=== PATIENT | female | born 1995 | race Caucasian/White ===

== ENCOUNTER 2017-02-07 01:40 | Observation (INO) | payer OTHER ==
[2017-02-07] MEDS ORDERED: IPRATROPIUM/ALBUTEROL 3 ML DEYVIAL ONE (01:45)
--- NOTE | 2017-02-07 01:51 | EDPHY ---
H & P HPI/ROS: HPI CHIEF COMPLAINT: Shortness of breath, asthma HISTORY OF PRESENT ILLNESS: Patient is a 21-year-old female she does have significant past medical history for asthma she has never been intubated, she presents emergency room stating that she is having an asthma attack. Upon arrival she is noted to be tachycardic, very anxious appearing, and tachypneic. She has a bronchitic sounding cough. However good air movement her lungs are clear. Room air saturation is 93%. No other medical history. No history of PE. Denies any chest pain. Denies fever. Denies productive cough does endorse nausea with vomiting. She reports that she started coughing yesterday. Nonproductive. Past Medical History: Asthma Past Surgical History: No recent surgery Social History: Denies daily use of drugs alcohol tobacco. [employer] student. Family History: Noncontributory. ROS REVIEW OF SYSTEMS: A comprehensive 10 point review of systems is otherwise negative aside from elements mentioned in the history of present illness. Exam Constitutional appears anxious, triage nursing summary reviewed, vital signs reviewed, awake/alert. Vital signs noted at triage tachycardia and tachypnea. Eyes normal conjunctivae and sclera, EOMI, PERRLA. HENT normal inspection, atraumatic, moist mucus membranes, no epistaxis, neck supple/ no meningismus, no raccoon eyes. Respiratory tachypnea clear lung sounds good air movement bilaterally. Bronchitic sounding cough. Cardiovascular tachycardia,regular rhythm, no murmur, no edema, distal pulses normal. Gastrointestinal soft, non-tender, no rebound, no guarding, normal bowel sounds, no distension, no pulsatile mass. Genitourinary no CVA tenderness. Musculoskeletal no midline vertebral tenderness, full range of motion, no calf swelling, no tenderness of extremities, no meningismus, good pulses, neurovascularly intact. Skin pink, warm, & dry, no rash, skin atraumatic. Neurologic awake, alert and oriented x 3, AAOx3, moves all 4 extremities equally, motor intact, sensory intact, CN II-XII intact, normal cerebellar, normal vision, normal speech. Psychiatric anxious Heme/Lymph/Immune no lymphadenopathy. Differential Diagnosis: Includes but is not limited to in a particular order bronchitis, upper respiratory tract infection, pneumothorax, acute asthma exacerbation, acute anxiety attack, panic attack Medical Decision Making: Plan for this patient IV establishment with IV fluid bolus 2 L normal saline, IV Solu-Medrol, DuoNeb breathing treatment, IV magnesium, IV Ativan. Chest x-ray. EKG. Basic blood work. Check D-dimer. Re -evaluate. Full manager cardiac cath. Re-evaluation: EKG interpretation by me on record in [employer] system. Impression time of EKG 2:02 a.m., this is sinus rhythm rate of 163. The EKG is reading AFib however I disagree it is regular narrow complex sinus tachycardia. I do not appreciate acute ischemic change. CT angiogram of the chest with IV contrast shows no evidence of pulmonary embolism. Called to me by Dr. Dukes. 0502: This patient is influenza a positive. She is persistently tachycardic here in emergency room when she arrived she was in the 160s. She is currently in the 130s. Due to ongoing tachycardia underlying lung disease of asthma and influenza a positive she will be admitted to the hospital service for observation and IV fluids. Here in the emergency room she has received magnesium, IV Solu-Medrol, 3 L of fluid, pain control and Ativan. She has symptomatic Carlos improved but still persistently tachycardic. She has been in the emergency room for over 3 hours. Will plan for observation admission. Source: Patient - Medical/Surgical History Hx Asthma: Yes Other PMH: PMH: asthma, H pylori. PSH: none - Social History Smoking Status: Never smoked Constitutional: Initial Vital Signs Temperature (C) 37.2 C 02/07/17 01:47 Heart Rate 165 H 02/07/17 01:47 Respiratory Rate 35 H 02/07/17 01:47 Blood Pressure 116/74 02/07/17 01:47 O2 Sat (%) 93 02/07/17 01:47 O2 Delivery Mode Room Air Allergies/Adverse Reactions: No Known Allergies Allergy (Verified 02/07/17 01:46) Home Medications: Medication Instructions Recorded Montelukast Sodium [Singulair 10 10 mg PO DAILY 07/24/14 mg (*)] Acetaminophen [Tylenol 325mg (*)] 650 mg PO Q4HRS PRN tab 02/07/17 Benzonatate [Tessalon Pearles] 200 mg PO TID PRN #14 cap 02/07/17 Norgestimate-Ethinyl Estradiol 1 each PO DAILY 02/07/17 [Tri-Sprintec Tablet] Oseltamivir Phosphate [Tamiflu 75 75 mg PO BIDMEAL #10 cap 02/07/17 mg (*)] Ranitidine HCl [Zantac 75] 75 mg PO DAILY PRN 02/07/17 diphenhydrAMINE [Benadryl 25 MG 25 - 50 mg PO Q6HRS PRN cap 02/07/17 (*)] Medical Decision Making - Diagnostics Imaging Results: Imaging Impressions Chest X-Ray 02/07/17 01:53 Impression: 1. No definite pneumonia. 2. No pneumothorax. - Data Points Laboratory Results: Laboratory Results 02/07/17 01:55 02/07/17 01:55 Medications Given: Discontinued Medications Acetaminophen (Tylenol) 650 mg PO Q4HRS PRN PRN Reason: Pain, Mild/Fever, Can Take PO Stop: 08/06/17 05:31 Last Admin: 02/07/17 08:10 Dose: 650 mg Albuterol/Ipratropium (Duoneb) 3 ml IH EDNOW ONE Stop: 02/07/17 01:53 Last Admin: 02/07/17 02:08 Dose: 3 ml Benzonatate (Tessalon Pearles) 200 mg PO TID PRN PRN Reason: Cough, Mild Stop: 08/06/17 12:00 Last Admin: 02/07/17 12:13 Dose: 200 mg Hydromorphone HCl (Dilaudid) 0.5 mg IVP EDNOW ONE Stop: 02/07/17 02:31 Last Admin: 02/07/17 03:00 Dose: 0.5 mg Sodium Chloride (Ns) 2,000 mls @ 0 mls/hr IV ONCE ONE; Wide Open PRN Reason: Protocol Stop: 02/07/17 01:53 Last Admin: 02/07/17 02:07 Dose: 2,000 mls Magnesium Sulfate (Magnesium Sulf 2 Gm (Premix)) 50 mls @ 50 mls/hr IV EDNOW ONE Stop: 02/07/17 02:52 Last Admin: 02/07/17 01:56 Dose: 50 mls Sodium Chloride (Ns) 1,000 mls @ 0 mls/hr IV ONCE ONE PRN Reason: Wide Open Stop: 02/07/17 03:38 Last Admin: 02/07/17 03:40 Dose: 1,000 mls Sodium Chloride (Ns) 1,000 mls @ 75 mls/hr IV CONT MARIELY Stop: 08/06/17 05:44 Last Admin: 02/07/17 08:11 Dose: 1,000 mls Lorazepam (Ativan Injection) 1 mg IVP EDNOW ONE Stop: 02/07/17 01:54 Last Admin: 02/07/17 01:56 Dose: 1 mg Methylprednisolone Sodium Succinate (Solu-Medrol) 125 mg IVP EDNOW ONE Stop: 02/07/17 01:54 Last Admin: 02/07/17 01:56 Dose: 125 mg Miscellaneous Medication (Norgestimate-Ethinyl Estradiol [Tri-Sprintec Tablet]) 1 each PO DAILY MARIELY Stop: 08/06/17 08:59 Last Admin: 02/07/17 12:13 Dose: Not Given Montelukast Sodium (Singulair) 10 mg PO DAILY MARIELY Stop: 08/06/17 08:59 Last Admin: 02/07/17 12:13 Dose: 10 mg Ondansetron HCl (Zofran) 4 mg IVP EDNOW ONE Stop: 02/07/17 01:54 Last Admin: 02/07/17 01:56 Dose: 4 mg Oseltamivir Phosphate (Tamiflu) 75 mg PO EDNOW ONE Stop: 02/07/17 05:06 Last Admin: 02/07/17 05:34 Dose: 75 mg Departure - Departure Disposition: [facility] Acute Clinical Impression: Tachycardia, Influenza A, Cough Condition: Fair
[2017-02-07] MEDS ORDERED: IPRATROPIUM/ALBUTEROL 3 ML DEYVIAL IH ONE (01:52)
[2017-02-07] MEDS ORDERED: NS 2,000 ML IV ONE (01:52)
[2017-02-07] MEDS ORDERED: methylPREDNISolone SOD SUCC 125 MG/2 ML VIAL IVP ONE (01:53)
[2017-02-07] MEDS ORDERED: MAGNESIUM SULF 2 GM/WATER 50 ML IV ONE (01:53)
[2017-02-07] MEDS ORDERED: LORazepam 2 MG/ML INJ IVP ONE (01:53)
[2017-02-07] MEDS ORDERED: ONDANSETRON 4 MG/2 ML VIAL IVP ONE (01:53)
[2017-02-07 02:02] LABS: PLATELET COUNT 272 10^3/uL (150-400)
--- NOTE | 2017-02-07 02:04 | CPEKG ---
Heart Rate: 163 RR Interval: 368 QRSD Interval: 78 QT Interval: 324 QTC Interval: 534 QRS [place]: 85 T Wave [place]: -20 EKG Severity - ABNORMAL ECG - EKG Impression: ATRIAL FIBRILLATION EKG Impression: VENTRICULAR PREMATURE COMPLEX EKG Impression: NONSPECIFIC REPOL ABNORMALITY, DIFFUSE LEADS EKG Impression: PROLONGED QT INTERVAL Electronically Signed By: Cole Guerrero 07-Feb-2017 06:35:17
--- NOTE | 2017-02-07 02:04 | CPEKG ---
Heart Rate: 163 RR Interval: 368 QRSD Interval: 78 QT Interval: 324 QTC Interval: 534 QRS [place]: 85 T Wave [place]: -20 EKG Severity - ABNORMAL ECG - EKG Impression: ATRIAL FIBRILLATION EKG Impression: VENTRICULAR PREMATURE COMPLEX EKG Impression: NONSPECIFIC REPOL ABNORMALITY, DIFFUSE LEADS EKG Impression: PROLONGED QT INTERVAL Electronically Signed By: Cole Guerrero 07-Feb-2017 06:35:17
[2017-02-07] MEDS ORDERED: HYDROmorphONE/DILAUDID 1 MG/ML INJ IVP ONE (02:30)
[2017-02-07] MEDS ORDERED: IOPAMIDOL (ISOVUE 370) 100 ML BTL IV ONE (02:33)
[2017-02-07] MEDS ORDERED: NS 1,000 ML IV ONE (03:37)
[2017-02-07] MEDS ORDERED: OSELTAMIVIR PHOSPHATE 75 MG CAP PO ONE (05:05)
[2017-02-07] MEDS ORDERED: ALBUTEROL 3 ML DEYVIAL IH PRN (05:32)
[2017-02-07] MEDS ORDERED: ACETAMINOPHEN 325 MG TAB PO PRN (05:32)
[2017-02-07] MEDS ORDERED: ONDANSETRON DISINTEGRATING 4 MG TAB PO PRN (05:32)
[2017-02-07] MEDS ORDERED: diphenhydrAMINE 25 MG CAP PO PRN (05:32)
[2017-02-07] MEDS ORDERED: HYDROmorphONE/DILAUDID 1 MG/ML INJ IVP PRN (05:32)
[2017-02-07] MEDS ORDERED: LORazepam 0.5 MG TAB PO PRN (05:32)
[2017-02-07] MEDS ORDERED: NS 1,000 ML IV SCH (05:45)
--- NOTE | 2017-02-07 06:55 | PDGENHP ---
History and Physical - Chief Complaint shortness of breath - History of Present Illness Source - patient provides history. she is fatigued but attempts to be cooperative. case discussed with ED provider and EMR reviewed. HPI - 21 yo F with pmhx significant for asthma, seasonal allergies who presents to the ED today with complaint of acute and severe SOB. patient reports history of 3-4 days of viral symptoms including cough, nausea/vomiting without diarrhea. Patient denies any known sick contacts but "probably" as she lives in a sor[place] house and is [employer] student. Patient reports having had her annual influenza vaccination. Patient notes some mild worsening SOB until this evening when it suddenly became very difficult to breath within a short amount of time. Patient reports using home albuterol without improvement in her symptoms. She also notes right and central pleuritic chest pain/tightness worse with cough and WOB. In the ED, Patient was noted to be in acute respiratory distress tachypneic to 40s and tachycardic to 170s. she was given steroids, nebs, magnesium with improvement in her symptoms. History Information - Allergies/Home Medication List Allergies/Adverse Reactions: No Known Allergies Allergy (Verified 02/07/17 01:46) Home Medications: Monolucast 07/24/14 [Last Taken Unknown] I have personally reviewed and updated: family history, medical history, social history, surgical history - Past Medical History asthma - Surgical History Reports: no pertinent surgical hx - Family History Positive for: asthma (brother, father). Negative for: diabetes type II - Social History Smoking Status: Never smoked Alcohol Use: Occasionally Drug Use: Marijuana (occasional) Review of Systems Review of Systems: ROS: 10pt was reviewed & negative except for what was stated in HPI & below Constitutional: Reports: malaise, recent illness. Denies: chills, fever, weakness EENMT: Reports: sore throat. Denies: ear pain, nose congestion Cardiac: Reports: chest pain (pleuritic. see hpi.). Denies: edema, palpitations Respiratory: Reports: cough, shortness of breath. Denies: wheezing Gastrointestinal: Reports: vomitting, nausea. Denies: black stools, blood streaked stools, diarrhea Genitourinary: Denies: dysuria, hematuria Muscolosketal: Reports: muscle pain (+ myalgias. improved since arrival. ). Denies: joint pain Skin: Reports: no symptoms. Denies: rash Neurological: Reports: no symptoms. Denies: headache, numbness, tingling, weakness Hematologic/Lymphatic: Denies: no symptoms Physical Exam Physical Exam: Selected Entries 02/07/17 01:47 Heart Rate 165 H Respiratory 35 H Rate O2 Sat (%) 93 Temperature (C) 37.2 C Blood Pressure 116/74 Mean Arterial 88 Pressure (MAP) O2 Delivery Room Air Mode Temp Pulse Resp BP Pulse Ox 37.6 C 115 H 20 96/52 L 95 02/07/17 06:26 02/07/17 06:26 02/07/17 06:26 02/07/17 06:26 02/07/17 06:26 Constitutional: no apparent distress, appears nourished, not in pain, other ( fatigued.) Eyes: PERRL, anicteric sclera, EOMI Ears, Nose, Mouth, Throat: moist mucous membranes, No poor dentition, No dry mucous membranes Cardiovascular: no murmur, rub, or gallop, tachycardia (120s-130s), No systolic murmur, No irregularly irregular, No edema Peripheral Pulses: 2+: dorsalis-pedis (R), dorsalis-pedis (L) Respiratory: no respiratory distress, reduced air movement (diffusely. ), other (coarse breath sounds), No expiratory wheeze, No inspiratory crackles Gastrointestinal: normoactive bowel sounds, soft, non-tender abdomen, no palpable masses, No distension Genitourinary: no bladder fullness, no bladder tenderness, No ibrahim in urethra Skin: warm, normal color, no rashes or abrasions, other (pallor) Musculoskeletal: full muscle strength Neurologic: AAOx3, other (grossly nonfocal. ) Psychiatric: not anxious, flat affect, other (fatigued. ), No anxious, No depressed Lab Data & Imaging Review 02/07/17 01:55 02/07/17 01:55 WBC 11.98 10^3/uL (3.80-9.50) H 02/07/17 01:55 RBC 4.94 10^6/uL (4.18-5.33) 02/07/17 01:55 Hgb 13.3 g/dL (12.6-16.3) 02/07/17 01:55 Hct 39.5 % (38.0-47.0) 02/07/17 01:55 MCV 80.0 fL (81.5-99.8) L 02/07/17 01:55 MCH 26.9 pg (27.9-34.1) L 02/07/17 01:55 MCHC 33.7 g/dL (32.4-36.7) 02/07/17 01:55 RDW 14.8 % (11.5-15.2) 02/07/17 01:55 Plt Count 272 10^3/uL (150-400) 02/07/17 01:55 MPV 9.3 fL (8.7-11.7) 02/07/17 01:55 Neut % (Auto) 82.1 % (39.3-74.2) H 02/07/17 01:55 Lymph % (Auto) 10.9 % (15.0-45.0) L 02/07/17 01:55 [place] % (Auto) 5.8 % (4.5-13.0) 02/07/17 01:55 Eos % (Auto) 0.6 % (0.6-7.6) 02/07/17 01:55 Baso % (Auto) 0.3 % (0.3-1.7) 02/07/17 01:55 Nucleat RBC Rel Count 0.0 % (0.0-0.2) 02/07/17 01:55 Absolute Neuts (auto) 9.84 10^3/uL (1.70-6.50) H 02/07/17 01:55 Absolute Lymphs (auto) 1.30 10^3/uL (1.00-3.00) 02/07/17 01:55 Absolute Monos (auto) 0.70 10^3/uL (0.30-0.80) 02/07/17 01:55 Absolute Eos (auto) 0.07 10^3/uL (0.03-0.40) 02/07/17 01:55 Absolute Basos (auto) 0.04 10^3/uL (0.02-0.10) 02/07/17 01:55 Absolute Nucleated RBC 0.00 10^3/uL (0-0.01) 02/07/17 01:55 Immature Gran % 0.3 % (0.0-1.1) 02/07/17 01:55 Immature Gran # 0.03 10^3/uL (0.00-0.10) 02/07/17 01:55 D-Dimer 0.66 ug/mLFEU (0.00-0.50) H 02/07/17 01:55 Sodium 140 mEq/L (134-144) 02/07/17 01:55 Potassium 4.1 mEq/L (3.5-5.2) 02/07/17 01:55 Chloride 105 mEq/L (97-110) 02/07/17 01:55 Carbon Dioxide 22 mEq/l (22-31) 02/07/17 01:55 Anion Gap 13 mEq/L (8-16) 02/07/17 01:55 BUN 10 mg/dL (7-23) 02/07/17 01:55 Creatinine 0.8 mg/dL (0.6-1.0) 02/07/17 01:55 Estimated GFR > 60 02/07/17 01:55 Glucose 121 mg/dL (70-100) H 02/07/17 01:55 Calcium 9.3 mg/dL (8.5-10.4) 02/07/17 01:55 Troponin I < 0.012 ng/mL (0.000-0.034) 02/07/17 01:55 NT-Pro-B Natriuret Pep 110 pg/mL (0-125) 02/07/17 01:55 Urine Color RED 02/07/17 04:15 Urine Appearance CLEAR 02/07/17 04:15 Urine pH 5.0 (5.0-7.5) 02/07/17 04:15 Ur Specific [place] 1.026 (1.002-1.030) 02/07/17 04:15 Urine Protein NEGATIVE (NEGATIVE) 02/07/17 04:15 Urine Ketones NEGATIVE (NEGATIVE) 02/07/17 04:15 Urine Blood 1+ (NEGATIVE) H 02/07/17 04:15 Urine Nitrate NEGATIVE (NEGATIVE) 02/07/17 04:15 Urine Bilirubin NEGATIVE (NEGATIVE) 02/07/17 04:15 Urine Urobilinogen NEGATIVE EU (0.2-1.0) 02/07/17 04:15 Ur Leukocyte Esterase NEGATIVE (NEGATIVE) 02/07/17 04:15 Urine RBC 3-5 /hpf (0-3) H 02/07/17 04:15 Urine WBC 1-3 /hpf (0-3) 02/07/17 04:15 Ur Epithelial Cells NONE SEEN /lpf (NONE-1+) 02/07/17 04:15 Urine Glucose NEGATIVE (NEGATIVE) 02/07/17 04:15 Nasal Influenza A PCR FLU A DETECTED (NEGATIVE) H 02/07/17 03:40 Nasal Influenza B PCR NEGATIVE FOR FLU B (NEGATIVE) 02/07/17 03:40 Visualized and Interpreted Chest x-ray results: Yes Chest X-Ray results: no infiltrate, normal EKG Interpretation: Positive for: other (sinus tachycardia 160s. no acute changes. ) Assessment & Plan Assessment: 21 yo F with asthma presents with acute respiratory distress. #acute respiratory failure - s/p nebs,steroids, mag, ativan in ED with improvement in respiratory status. patient without documented hypoxia #influenza A - tamiflu #asthma exacerbation - nebs, steroids, mag as above given. #tachycardia - continue IVF and montior on remote telemetry. #hypotension - BPs low normal. Patient reports not usual as her baseline BP "normal." patient currently asymptomatic. ativan could also be contributing. # continue IVF. #hyperglycemia - nonfasting lab. continue to monitor. advance diet. FEN - IVF, encourage PO hydration if tolerated. anti-emetics prn for nausea. advance diet as tolerated. PPX - SCDs. early ambulation COR - FULL Dispo - Patient admitted to observation on medical floor for remote telemetry monitoring in setting of tachycardia.
[2017-02-07 07:58] VITALS: RESP 16
[2017-02-07] MEDS ORDERED: MONTELUKAST SODIUM 10 MG TAB PO SCH (09:00)
[2017-02-07] MEDS ORDERED: NORGESTIMATE ETHINYL ESTRADIOL PO SCH ×2 (09:00→12:15)
[2017-02-07 11:20] VITALS: BP 90/52; PULSE 86; TEMP 98.3; O2SAT 96
[2017-02-07] MEDS ORDERED: BENZONATATE 100 MG CAP PO PRN (12:01)
[2017-02-07] MEDS ORDERED: NON-FORMULARY NEW DRUG (Ranitidine Hcl [Zantac 75] 75 MG) PO PRN (12:01)
[2017-02-07] MEDS ORDERED: FAMOTIDINE 20 MG TAB PO PRN (12:09)
--- NOTE | 2017-02-07 12:28 | PDDCSUM ---
Discharge Summary Discharge Summary: Dates of service 02/07/17, admit and discharge Consultations/procedures: none Hospital course by problem # influenza A: started on tamiflu and will complete full course, only minimally symptomatic # sob: without true hypoxia, CTA showing no PE or pna, improved s/p nebs # RAD with acute exacerbation: largely resolved, lungs clear, short steroid burst and nebs while in house but will dc on home meds # tachycardia: due to fever, volume depletion, improved with IVF dc home f/u with pcp > 35 min spent in dc more than half in coordination of care
[2017-02-07] MEDS ORDERED: OSELTAMIVIR PHOSPHATE 75 MG CAP PO SCH (17:00)
[2017-02-08] MEDS ORDERED: methylPREDNISolone SOD SUCC 125 MG/2 ML VIAL IVP SCH (09:00)
--- NOTE | 2017-02-08 09:35 | ASDISCHSUM ---
Discharge Information Plan Status: Medically Cleared to Leave: Discharge Date:02/07/2017 02:01 PM CM D/C Disposition: ADT D/C Disposition:Home, Routine, Self-Care Projected Discharge Date:02/07/2017 02:01 PM Transportation at D/C: Discharge Delay Reason: Follow-Up Date:02/07/2017 02:01 PM Discharge Slot: Final Diagnosis: Placement Information Patient Contact Information Contact Name:ALEXANDRA Relationship:Mother Address:[address] Work Phone: City:[place] Alternate Phone: [facility]/Zip Code:[place] [address] Email: Financial Information Financial Class:[employer] Primary Plan Desc:[employer] P[employer] HMO OPEN ACC LOCAL Primary Plan Number:[id number] Secondary Plan Desc: Secondary Plan Number: Assessment Information Intervention Information
--- NOTE | 2017-02-08 09:35 | ASDISCHSUM ---
Discharge Information Plan Status: Medically Cleared to Leave: Discharge Date:02/07/2017 02:01 PM CM D/C Disposition: ADT D/C Disposition:Home, Routine, Self-Care Projected Discharge Date:02/07/2017 02:01 PM Transportation at D/C: Discharge Delay Reason: Follow-Up Date:02/07/2017 02:01 PM Discharge Slot: Final Diagnosis: Placement Information Patient Contact Information Contact Name:ALEXANDRA Relationship:Mother Address:[address] [facility] Work Phone: City:[place] Alternate Phone: [facility]/Zip Code:[place] [address] Email: Financial Information Financial Class:[employer] Primary Plan Desc:[employer] P[employer] HMO OPEN ACC LOCAL Primary Plan Number:[id number] Secondary Plan Desc: Secondary Plan Number: Assessment Information Intervention Information
--- NOTE | 2017-02-08 09:35 | ASDISCHSUM ---
Discharge Information Plan Status: Medically Cleared to Leave: Discharge Date:02/07/2017 02:01 PM CM D/C Disposition: ADT D/C Disposition:Home, Routine, Self-Care Projected Discharge Date:02/07/2017 02:01 PM Transportation at D/C: Discharge Delay Reason: Follow-Up Date:02/07/2017 02:01 PM Discharge Slot: Final Diagnosis: Placement Information Patient Contact Information Contact Name:ALEXANDRA Relationship:Mother Address:[address] [facility] Work Phone: City:[place] Alternate Phone: [facility]/Zip Code:[place] [address] Email: Financial Information Financial Class:[employer] Primary Plan Desc:[employer] P[employer] HMO OPEN ACC LOCAL Primary Plan Number:[id number] Secondary Plan Desc: Secondary Plan Number: Assessment Information Intervention Information
== END 2017-02-07 14:01 | disposition home or self-care (01) ==
LOC: INTOOBSV 05:11 → F3E 06:13
PROVIDERS: ADMIT Family Medicine; ATTEND Family Medicine
DX: J10.1 Influenza due to other identified influenza virus with other respiratory manifestations (principal); R06.02 Shortness of breath; R00.0 Tachycardia, unspecified; J45.909 Unspecified asthma, uncomplicated
CPT/HCPCS: 71010; 71275; 93005; G0378; 96365; J1170; J2060; J2405; Q9967

== ENCOUNTER 2018-07-06 08:21 | Emergency (ER) | payer OTHER ==
--- NOTE | 2018-07-06 09:06 | EDPHY ---
H & P Stated Complaint: asthma exacerbation Time Seen by Provider: 07/06/18 09:01 HPI/ROS: HPI: This is a 22-year-old female who presents with Chief Complaint: Difficulty breathing Location: Chest Quality: Difficulty breathing Duration: 1-2 hours prior to arrival Signs and Symptoms: + shortness of breath at rest, + shortness of breath on exertion, no cough, no chest pain, no palpitations, no lower extremity edema, no wheezing, no orthopnea, no paroxysmal nocturnal dyspnea, no fever, no injury/ trauma, no hemoptysis, no carpal pedal spasms Timing: Acute on chronic Severity: [id number] Context: 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 She reports that she feels extremely anxious and feels like she "cannot catch her breath." Patient did not tried taking her albuterol inhaler which she does have prior to coming to the emergency room. She also suffers from allergies and takes Singulair daily. Patient denies any fever, cough, sore throat, upper respiratory symptoms. She believes that this may be related to anxiety. Modifying Factors: None Comment: ROS: A comprehensive 10 system review of systems is otherwise negative aside from elements mentioned in the history of present illness. MEDICAL/SURGICAL/SOCIAL HISTORY: Medical history: Asthma, allergies. Last menstrual period 2-3 weeks ago. Takes oral control pills. Surgical history: Denies Social history: Nonsmoker. 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. Lives in [place]. CONSTITUTIONAL: Extremely anxious, mild distress, well-appearing young adult white female, awake and alert HEENT: Atraumatic and normocephalic, PERRL, EOMI. Wearing glasses. Nares patent; no rhinorrhea; no nasal mucosal edema. Tympanic membranes clear. Oropharynx clear, no exudate and moist pink mucosa. Airway patent. No lymphadenopathy. No meningismus. Cardiovascular: Normal S1/S2, regular rate, regular rhythm, without murmur rub or gallop. PULMONARY/CHEST: Symmetrical and nontender. Clear to auscultation bilaterally. Good air movement. No accessory muscle usage. Tachypnea noted. Upper airway transmission of sounds noted. ABDOMEN: Soft, nondistended, nontender, no rebound, no guarding, no peritoneal signs, no masses or organomegaly. No CVAT. EXTREMITIES: 2/2 pulses, strength 5/5, no deformities, no clubbing, no cyanosis or edema. NEUROLOGICAL: no focal neuro deficits. GCS 15. SKIN: Warm and dry, no erythema. no rash. Good capillary refill. Source: Patient Exam Limitations: No limitations - Personal History LMP (Females 10-55): 22-28 Days Ago Current Tetanus Diphtheria and Acellular Pertussis (TDAP): Yes - Medical/Surgical History Hx Asthma: Yes Hx Chronic Respiratory Disease: No Hx Diabetes: No Hx Cardiac Disease: No Hx Renal Disease: No Hx Cirrhosis: No Hx Alcoholism: No Hx HIV/AIDS: No Hx Splenectomy or Spleen Trauma: No Other PMH: PMH: asthma, H pylori. PSH: none - Social History Smoking Status: Never smoked Constitutional: Initial Vital Signs Temperature (C) 36.9 C 07/06/18 08:33 Heart Rate 71 07/06/18 08:33 Respiratory Rate 28 H 07/06/18 08:33 Blood Pressure 97/72 L 07/06/18 08:33 O2 Sat (%) 100 07/06/18 08:33 O2 Delivery Mode Room Air Allergies/Adverse Reactions: No Known Allergies Allergy (Verified 07/06/18 08:31) Home Medications: Medication Instructions Recorded Montelukast Sodium [Singulair 10 10 mg PO DAILY 07/24/15 mg (*)] Albuterol 07/06/18 [id number] Tablet 07/06/18 Medical Decision Making ED Course/Re-evaluation: Vital signs reviewed and show tachypnea and O2 sats 100% on room air. Placed on continuous pulse oximetry. I suspect this is related to anxiety and hyperventilation syndrome. Patient given DuoNeb and p.o. Ativan 1 mg Lung sounds are benign. I do not believe a chest x-ray is warranted at this time. 1020: Reassessed patient who has stable vital signs, no respiratory distress, sitting calmly, lung sounds are benign. I doubt pulmonary embolism. Vital signs improved and stable at discharge. School excuse provided per request. This patient was seen under the supervision of my primary supervising physician. I evaluated care for this patient independently. Differential Diagnosis: Shortness of breath including but not limited to pulmonary infectious process, COPD, asthma, pulmonary embolus and congestive heart failure. - Data Points Medications Given: Discontinued Medications Albuterol/Ipratropium (Duoneb) 3 ml IH EDNOW ONE Stop: 07/06/18 09:12 Last Admin: 07/06/18 09:19 Dose: 3 ml Lorazepam (Ativan) 2 mg PO EDNOW ONE Stop: 07/06/18 09:12 Last Admin: 07/06/18 09:18 Dose: 2 mg Departure - Departure Disposition: Home, Routine, Self-Care Clinical Impression: Asthma without acute exacerbation, Anxiety hyperventilation Condition: Good Instructions: Asthma (ED), Generalized Anxiety Disorder (ED) Additional Instructions: Rest as much as possible until you are feeling better. Please try to reduce stress and practice relaxation techniques. Use albuterol inhaler every 4-6 hours as needed for shortness of breath, wheezing. Referrals: [facility] [Clinic] - As per Instructions Stand Alone Forms: School Excuse
[2018-07-06] MEDS ORDERED: IPRATROPIUM/ALBUTEROL 3 ML DEYVIAL IH ONE (09:11)
[2018-07-06] MEDS ORDERED: LORazepam 1 MG TAB PO ONE (09:11)
[2018-07-06 10:27] VITALS: BP 118/78
== END 2018-07-06 10:28 | disposition home or self-care (01) ==
DX: J44.1 Chronic obstructive pulmonary disease with (acute) exacerbation (principal); F41.9 Anxiety disorder, unspecified